=== PATIENT | male | born 1980 | race Caucasian/White ===

== ENCOUNTER 2024-10-10 14:44 | Observation (INO) ==
[2024-10-10 16:32] LABS: ABS Lymphocytes 0.8 10^3/uL (1.0-4.8); ABS Monocytes 0.4 10^3/uL (0.0-1.1); ABS Neutrophils 7.4 10^3/uL (1.5-7.6); ABS Nucleated RBC 0.01 10^3/ul; Eosinophil % 0.1 %; Hematocrit 41.7 % (38-53); Hemoglobin 14.3 g/dL (13.2-16.3); Lymphocyte % 9.1 %; Mean Corpuscular Hemoglobin 30.8 pg (27-33); Mean Corpuscular Hgb Conc 34.3 g/dL (31-36); Mean Corpuscular Volume 89.8 fL (80-97); Mean Platelet Volume 7.3 fL (7.5-11.2); Nucleated Red Blood Cells % 0.1 %/100WBC (0.0-0.8); Platelet Count 244 10^3/uL (150-450); Red Blood Count 4.64 10^6/uL (4.06-5.63); Red Cell Distribution Width 13.6 % (12-17); White Blood Count 8.7 10^3/uL (3.6-10.2)
[2024-10-10] MEDS: Lactated Ringers 1000 ml BAG 1,000 ML IV ONE (16:45)
[2024-10-10 17:05] LABS: ALT 19 U/L (7-52); AST 19 U/L (13-39); Albumin 4.4 g/dL (3.2-5.2); Albumin/Globulin Ratio 2.4 (1-3); Alkaline Phosphatase 71 U/L (35-149); Anion Gap 9 mmol/L (2-16); Blood Urea Nitrogen 11 mg/dL (6-24); C Reactive Protein < 1.00 mg/L (<8.01); CO2 Carbon Dioxide 29 mmol/L (22-32); Calcium 9.6 mg/dL (8.6-10.3); Chloride 97 mmol/L (101-111); Creatinine, Serum 1.16 mg/dL (0.67-1.17); Globulin 1.8 g/dL (2-4); Glucose 119 mg/dL (70-100); Lipase 24 U/L (11.0-82.0); Potassium 4.4 mmol/L (3.5-5.0); Sodium 135 mmol/L (135-145); Total Bilirubin 0.5 mg/dL (0.2-1.0); Total Protein 6.2 g/dL (6.4-8.9); eGFR CKD-EPI 80.1 (>60)
[2024-10-10] MEDS: Morphine 4 MG/ML VIAL (1 ml) IV ONE (17:41)
[2024-10-10] MEDS: cefTRIAXone 2 gm/50 mL D5W 2 GM/50 ML BAG IV ONE (18:29)
[2024-10-10] MEDS: HYDROmorphone 1 MG/1 ML SYRINGE IV SLOW PU ONE (18:40)
[2024-10-10 19:35] LABS: Urine Appearance Clear; Urine Bilirubin Negative (Negative); Urine Blood Trace (Negative); Urine Color Colorless; Urine Glucose Negative (Negative); Urine Ketones Negative (Negative); Urine Nitrite Negative (Negative); Urine Protein Negative (Negative); Urine Specific Gravity 1.002 (1.002-1.030); Urine Urobilinogen Negative (Negative)
[2024-10-10] MEDS ORDERED: Ondansetron 4 mg VIAL 2 MG/ML 2 ml VIAL IV PRN (20:43)
[2024-10-10] MEDS ORDERED: Morphine 2 MG/ML SYRINGE IV PRN (22:37)
[2024-10-11 06:52] LABS: Calcium 9.2 mg/dL (8.6-10.3); Creatinine, Serum 1.16 mg/dL (0.67-1.17); Magnesium 1.9 mg/dL (1.9-2.7); Potassium 4.2 mmol/L (3.5-5.0); eGFR CKD-EPI 80.1 (>60)
[2024-10-11] MEDS ORDERED: fentaNYL 100 mcg/2 ml 50 MCG/ML VIAL ONE (12:08)
[2024-10-11] MEDS ORDERED: Midazolam 2 mg/2 ml VIAL 1 mg/ml 2 ml VIAL (2 mg) ONE (12:08)
[2024-10-11] MEDS ORDERED: Propofol 10 MG/ML 20 ML BTL ONE (12:11)
[2024-10-11] MEDS ORDERED: Lidocaine 2% PF 5 ML VIAL ONE (12:11)
[2024-10-11] MEDS ORDERED: Ondansetron 4 mg VIAL 2 MG/ML 2 ml VIAL ONE (12:11)
[2024-10-11] MEDS ORDERED: Dexamethasone IV 4 MG/ML VIAL 1 ml VIAL ONE (12:11)
[2024-10-11] MEDS ORDERED: cefTRIAXone VIAL 1,000 MG VIAL ONE (15:29)
[2024-10-11] MEDS ORDERED: cefTRIAXone 1 gm/50 mL D5W 1 GM/50 ML BAG IV ONE (15:30)
[2024-10-11] MEDS ORDERED: Iohexol 180 (CONTRAST) 10 ML SDV IV ONE (15:33)
[2024-10-11] MEDS ORDERED: Phenylephrine 40 mcg/mL 10mL (400mcg) SYRINGE ONE (15:36)
[2024-10-11] MEDS ORDERED: Metoclopramide 5 MG/ML VIAL (10 mg) IV PRN (16:13)
[2024-10-11] MEDS ORDERED: fentaNYL 100 mcg/2 ml 50 MCG/ML VIAL IV PRN (16:13)
[2024-10-11] MEDS ORDERED: Ondansetron 4 mg VIAL 2 MG/ML 2 ml VIAL IV PRN (16:13)
[2024-10-11] MEDS ORDERED: Naloxone 0.4 mg VIAL 0.4 mg/ml 1 ml VIAL IV PRN (16:13)
[2024-10-11] MEDS: cefTRIAXone 2 gm/50 mL D5W 2 GM/50 ML BAG IV ONE (17:03)
[2024-10-11 17:23] VITALS: BP 137/80
== END 2024-10-11 17:45 | disposition home or self-care (01) ==
LOC: EDHOLD 14:44 → ED 14:44 → SUATTDRO 20:13 → MEDTELE 21:24
PROVIDERS: ADMIT Student in an Organized Health Care Education/Training Program; ATTEND Student in an Organized Health Care Education/Training Program